=== PATIENT | female | born 1960 | race Caucasian/White ===

== ENCOUNTER 2020-03-09 10:17 | Outpatient (CLI) | payer OTHER, SELFPAY ==
--- NOTE | ~2020-03-09 | MM_ITS ---
EXAMINATION: MM screening maldonado BI w lyn HISTORY: Screening mammogram TECHNIQUE: Craniocaudal and mediolateral oblique 3-D tomosynthesis images were obtained and synthetic 2-D images were generated. CAD analysis was submitted and interpreted. COMPARISON: 01/18/2019, 01/16/2018, 01/14/2017 bilateral digital screening mammogram examinations BREAST PARENCHYMAL COMPOSITION: There are scattered areas of fibroglandular density. FINDINGS: Occasional benign calcifications. There is no evidence of suspicious mass, calcification, o r architectural distortion to suggest malignancy in either breast. There has been no suspicious inter andrae change. IMPRESSION: 1. No mammographic evidence of malignancy. 2. Recommend routine screening mammography in one year. BI-RADS Category 2: Benign finding(s). Reviewed, dictated and finalized at location A.
== END 2020-03-09 10:18 | disposition home or self-care (01) ==
LOC: ANHIMG 10:22
PROVIDERS: PCP Obstetrics & Gynecology; Visit Provider Obstetrics & Gynecology
DX: Z12.31 Encounter for screening mammogram for malignant neoplasm of breast (principal)
CPT/HCPCS: 77063; 77067

== ENCOUNTER 2021-06-27 10:09 | Outpatient (CLI) | payer OTHER, SELFPAY ==
--- NOTE | ~2021-06-27 | MM_ITS ---
EXAMINATION: MM screening maldonado BI w lyn HISTORY: Screening TECHNIQUE: Craniocaudal and mediolateral oblique 3-D tomosynthesis images were obtained and synthetic 2-D images were generated. CAD analysis was submitted and interpreted. COMPARISON: Comparison to multiple prior studies sequentially, with oldest reviewed study dated 09/07. BREAST PARENCHYMAL COMPOSITION: There are scattered areas of fibroglandular density. FINDINGS: There is no evidence of suspicious mass, calcification, or architectural distortion to sugg est malignancy in either breast. There has been no suspicious interval change. IMPRESSION: 1. No mammographic evidence of malignancy. 2. Recommend routine screening mammography in one year. BI-RADS Category 1: Negative Reviewed, dictated and finalized at location A. IFIED APPLIANCE SERVICE TECHNICIAN
== END 2021-06-27 10:10 | disposition home or self-care (01) ==
LOC: ANHIMG 10:19
PROVIDERS: PCP Nurse Practitioner Obstetrics & Gynecology; Visit Provider Nurse Practitioner Obstetrics & Gynecology
DX: Z12.31 Encounter for screening mammogram for malignant neoplasm of breast (principal)
CPT/HCPCS: 77063; 77067

== ENCOUNTER 2022-08-29 09:39 | Outpatient (CLI) | payer OTHER, SELFPAY ==
--- NOTE | ~2022-08-29 | MM_ITS ---
EXAMINATION: MM screening maldonado BI w lyn HISTORY: Screening mammogram TECHNIQUE: Craniocaudal and mediolateral oblique 3-D tomosynthesis images were obtained and synthetic 2-D images were generated. CAD analysis was submitted and interpreted. COMPARISON: 06/27/2021, 03/09/2020, 01/18/2019 bilateral screening mammogram examinations BREAST PARENCHYMAL COMPOSITION: There are scattered areas of fibroglandular density. FINDINGS: Right breast: There is a focal asymmetry in the posterior upper outer right breast. Diagnostic right mammogram is recommended, with ultrasound if required. Left breast: There is no evidence of suspicious mass, calcification, or architectural distortion to s uggest malignancy in either breast. There has been no suspicious interval change. IMPRESSION: 1. Focal posterior upper outer right breast asymmetry 2. Diagnostic right mammogram is recommended, with ultrasound if required BI-RADS Category 0: Incomplete: Needs additional imaging evaluation. Reviewed, dictated and finalized at location A. L ASSOCIATE
== END 2022-08-29 09:40 | disposition home or self-care (01) ==
LOC: ANHIMG 09:42
PROVIDERS: PCP Nurse Practitioner Women's Health; Visit Provider Nurse Practitioner Women's Health
DX: Z12.31 Encounter for screening mammogram for malignant neoplasm of breast (principal); R92.8 Other abnormal and inconclusive findings on diagnostic imaging of breast
CPT/HCPCS: 77063; 77067

== ENCOUNTER 2022-09-13 11:18 | Outpatient (CLI) | payer OTHER, SELFPAY ==
--- NOTE | ~2022-09-13 | MMUS_ITS ---
EXAMINATION: MM diagnostic maldonado RT w lyn, US breast RT limited HISTORY: Focal posterior upper outer right breast mammographic asymmetry on August 29, 2022 screenin g mammogram examination TECHNIQUE: Additional 3-D tomosynthesis images of the right breast were performed, including rolled m edial and rolled lateral craniocaudal views, and synthetic 2-D images were generated. CAD analysis wa s submitted and interpreted. High resolution upper outer quadrant right breast ultrasound was perform ed. COMPARISON: August 29, 2019 bilateral screening mammogram FINDINGS: MAMMOGRAPHIC FINDINGS: Benign calcifications are noted. No suspicious reproducible mass or architectural distortion is evide nt. No malignant calcification, skin thickening or retraction. ULTRASOUND: There are 2 approximately 2 to 3 mm cyst identified at 10:00 2 cm from the nipple and 10:00 4 cm from the nipple. No suspicious mass or shadowing is detected in the upper outer quadrant. IMPRESSION: 1. Benign findings 2. Routine annual mammographic screening is recommended BI-RADS Category 2: Benign finding(s). Reviewed, dictated and finalized at location A. IN MAKER IMPRESSION: 1. Benign findings 2. Routine annual mammographic screening is recommended BI-RADS Category 2: Benign finding(s).
== END 2022-09-13 11:19 | disposition home or self-care (01) ==
PROVIDERS: PCP Nurse Practitioner Women's Health; Visit Provider Nurse Practitioner Women's Health
DX: R92.8 Other abnormal and inconclusive findings on diagnostic imaging of breast (principal)
CPT/HCPCS: 76642; 77061; 77065; G0279

== ENCOUNTER 2023-12-23 10:07 | Outpatient (CLI) | payer MEDICARE, SELFPAY ==
--- NOTE | ~2023-12-23 | MM_ITS ---
EXAMINATION: MM screening maldonado BI w lyn HISTORY: Screening TECHNIQUE: Craniocaudal and mediolateral oblique 3-D tomosynthesis images were obtained and synthetic 2-D images were generated. CAD analysis was submitted and interpreted. COMPARISON: Comparison to multiple prior studies sequentially, with oldest reviewed study dated 01/16. BREAST PARENCHYMAL COMPOSITION: Not dense: There are scattered areas of fibroglandular density. FINDINGS: The right breast is stable without evidence for malignancy. There is developing focal asymm etry in the upper outer quadrant of the left breast anteriorly. IMPRESSION: 1. Developing left breast asymmetry. 2. Additional mammographic views and possible breast ultrasound are recommended. BI-RADS Category 0: Incomplete: Needs additional imaging evaluation. Reviewed, dictated and finalized at location B. IMPRESSION: 1. Developing left breast asymmetry. 2. Additional mammographic views and possible breast ultrasound are recommended . BI-RADS Category 0: Incomplete: Needs additional imaging evaluation.
== END 2023-12-23 10:08 | disposition home or self-care (01) ==
PROVIDERS: PCP Nurse Practitioner Women's Health; Visit Provider Nurse Practitioner Women's Health
DX: Z12.31 Encounter for screening mammogram for malignant neoplasm of breast (principal); N64.89 Other specified disorders of breast; R92.8 Other abnormal and inconclusive findings on diagnostic imaging of breast
CPT/HCPCS: 77063; 77067

== ENCOUNTER 2024-01-12 10:46 | Outpatient (CLI) | payer MEDICARE, SELFPAY ==
--- NOTE | ~2024-01-12 | MMUS_ITS ---
EXAMINATION: MM diagnostic maldonado LT w lyn, US breast LT limited HISTORY: Asymmetric density upper, outer left breast TECHNIQUE: Additional 3-D tomosynthesis spot compression images of the upper, outer left breast were performed and synthetic 2-D images were generated. CAD analysis was submitted and interpreted. High r esolution limited left breast ultrasound was performed. COMPARISON: 12/23/2023, 08/29/2022 FINDINGS: MAMMOGRAPHIC FINDINGS: There are scattered periventricular densities. Spot compression views demonstrate relative partial ef facement of the area of increased density at the upper, outer left subareolar breast. No definite dis crete mass lesion seen. No suspicious microcalcifications. ULTRASOUND: There is a 3 mm hypoechoic rounded masslike structure at the 1:00 position left breast, 2 cm from the nipple, superficially located. No definite sonographic abnormality seen. IMPRESSION: 3 mm probable benign hypoechoic mass at the 1:00 position left breast, 2 cm from the nipple. Six-fri follow-up left mammogram/ultrasound are recommended to reassess. BI-RADS category 3, probably benign findings. Reviewed, dictated and finalized at location . IMPRESSION: 3 mm probable benign hypoechoic mass at the 1:00 position left breast, 2 cm fr om the nipple. Six-month follow-up left mammogram/ultrasound are recommended to reassess. BI-RADS category 3, probably benign findings.
== END 2024-01-12 10:47 | disposition home or self-care (01) ==
LOC: ANHIMG 10:49
PROVIDERS: PCP Nurse Practitioner Women's Health; Visit Provider Nurse Practitioner Women's Health
DX: R92.8 Other abnormal and inconclusive findings on diagnostic imaging of breast (principal)
CPT/HCPCS: 76642; 77061; 77065; G0279

== ENCOUNTER 2025-02-25 14:39 | Emergency (ER) | payer MEDICARE, SELFPAY ==
--- NOTE | 2025-02-25 14:41 | ED_ITS ---
HPI - Female Genitourinary General Chief complaint: Urogenital-Female Stated complaint: urinary irritation Source: patient, RN notes reviewed and old records reviewed Mode of arrival: ambulatory Limitations: no limitations History of Present Illness HPI Narrative: 64-year-old female presents to the [facility] with intermittent for the last 3 weeks symptoms- frequency with urination, sediment, dark urine, intermittent nausea, sometimes having pain inside her bladder. Denies any generalized abdominal pain. No CVA tenderness. Denies fevers. Related Data Allergies Allergy/AdvReac Type Severity Reaction Status Date / Time Penicillins Allergy Mild Rash Verified 02/25/25 15:29 Sulfa (Sulfonamide Allergy Unknown Unknown Verified 02/25/25 15:29 Antibiotics) Review of Systems Review of Systems: All systems reviewed & are unremarkable except as noted in HPI and below Constitutional: Constitutional: Reports no additional constitutional complaints Genitourinary: Genitourinary: Reports as per HPI Musculoskeletal: Musculoskeletal: Reports no additional musculoskeletal complaints Integumentary/Breasts: Skin/Breast: Reports system reviewed and no additional complaints, except as docu PMFSH Comments At the time of my signature, I reviewed and agree with the nursing past medical, surgical, social, and family history. There is no relevant family history pertinent to the patient complaint. Exam Const: General: cooperative, healthy appearing, comfortable, no acute distress, well developed, alert and well nourished Nutritional Appearance: well nourished Orientation/consciousness: patient oriented x3 Limitations: no limitations HENMT: Head: normal to inspection Mouth: Yes Normal oral and palatal mucosa present, Yes lip normal, Yes tongue normal and Yes moist mucous membranes Eyes: General: appearance normal, both eyes and all related structures Alignment and Position: alignment normal Neck: Neck: normal visual inspection, full ROM, no lymphadenopathy and no meningeal signs Chest: Chest palpation & inspection: normal inspection of the chest Resp: Effort & Inspection: normal respiratory effort and able to speak in complete sentences Cardio: Rate: regular rate Skin: General skin exam: normal color and no rashes or lesions noted Neuro: General: patient oriented x3, gait normal, moves all extremities and no meningeal signs Cognition (Neuro): normal cognition Speech: normal speech Gait exam (Neuro): Normal gait present Extrem: General: normal to inspection, full ROM, capillary refill normal and normal gait Psych: Appearance: grossly normal and well kempt Mental Status: mental status grossly normal Speech and movement: Normal speech and movement present and Clear speech present Affect: normal affect Attitude: cooperative Course Course Level of Care: Express Care Visit Vital Signs Vital signs: Vital Signs Temperature 98.2 F 02/25/25 14:51 Pulse Rate 105 H 02/25/25 14:51 Respiratory Rate 20 02/25/25 14:51 Blood Pressure 124/86 02/25/25 14:51 Pulse Oximetry 97 02/25/25 14:51 Oxygen Delivery Room Air 02/25/25 14:51 Temperature 98.2 F 02/25/25 14:51 Pulse Rate 105 H 02/25/25 14:51 Respiratory Rate 20 02/25/25 14:51 Blood Pressure 124/86 02/25/25 14:51 Pulse Oximetry 97 02/25/25 14:51 Oxygen Delivery Room Air 02/25/25 14:51 Reviewed MDM - Female Genitourinary MDM Narrative Medical decision making narrative: Patient sitting in exam patient is nontoxic, vitals stable Patient presents with 3 weeks of intermittent urinary symptoms Urine dip does not show signs of a UTI, no culture is indicated Patient is appropriate for outpatient treatment with close follow-up Discharge instructions reviewed with patient, as well as provided in writing per nursing staff. The instructions also include specific and strict return/GO TO THE ER as well as f/u information. All questions have been answered, and the patient deny any further questions with discharge and discharge plan. Some parts of this dictation were generated by voice recognition software and may contain typographical and/or grammatical inaccuracies. Differential Diagnosis Differential diagnosis: Likely urinary tract infection, cystitis and other (Dysuria) Lab Data Labs: Lab Results 02/25/25 Range/Units 14:54 POC Urine Color Yellow POC Urine Clarity Clear POC Urine pH 6.0 POC Ur Specif [place] 1.005 POC Urine Protein Negative (Negative) POC Ur Glucose (UA) Negative (Negative) POC Urine Ketones Negative (Negative) POC Urine Blood Negative (Negative) POC Urine Nitrite Negative (Negative) POC Urine Bilirubin Negative (Negative) POC Urine Urobilinogen 0.2 POC U Leukocyte Esteras Negative (Negative) Reviewed Critical Care Time Critical Care Time Critical Care Time: No Discharge Plan Discharge Clinical Impression: Abnormality of urination Patient Disposition: Home Condition: Stable Instructions: Antibiotic Form, Dysuria (ED) Additional Instructions: Increased water intake Take Tylenol as needed for pain Today your urine dip did not show signs of a UTI. Follow-up with primary care For new or worsening symptoms go directly to the emergency room Patient Language: Spanish Follow-up/Referrals: Guanaco,Fide Zuluaga APN [[facility] Care Provider[facility] Time of Disposition: 15:12
[2025-02-25 14:51] VITALS: BP 124/86; PULSE 105; RESP 20; TEMP 36.8; O2SAT 97
[2025-02-25 15:00] LABS: EDUAAPPEAR Clear; EDUABILI Negative (Negative); EDUABLOOD Negative (Negative); EDUACOLOR1 Yellow; EDUAGLUCOSE Negative (Negative); EDUAKETONE Negative (Negative); EDUALEUKO Negative (Negative); EDUANITRATE Negative (Negative); EDUAPH 6.0; EDUAPROTEIN Negative (Negative); EDUASPGRAVITY 1.005; EDUAUROBILI 0.2
== END 2025-02-25 15:17 | disposition home or self-care (01) ==
PROVIDERS: Emergency Provider Nurse Practitioner; PCP Nurse Practitioner Family
DX: R39.198 Other difficulties with micturition (principal)
CPT/HCPCS: 81003; 99202; G0463

== ENCOUNTER 2025-04-28 10:43 | Outpatient (CLI) | payer MEDICARE, SELFPAY ==
--- NOTE | ~2025-04-28 | MMUS_ITS ---
EXAMINATION: MM diagnostic maldonado BI w lyn, US breast LT limited INDICATION: 65-year old female; BI-RADS 3, short-term follow-up probably benign left breast mass. Annual right mammogram. COMPARISON: 01/12/2024 through 03/09/2020 TECHNIQUE: Digital breast tomosynthesis bilateral True lateral, CC and MLO views with spot compression views of LEFT breast were obtained with computer-aided detection to assist in interpretation of the study. MAMMOGRAM FINDINGS: There are scattered areas of fibroglandular density. No new suspicious mass, calcification or architectural distortion to suggest malignancy in either breast. LEFT BREAST ULTRASOUND FINDINGS: Targeted evaluation of the area of concern was completed. 0.3 cm circumscribed hypoechoic mass at 1:00 location 2 cm from the nipple in the LEFT breast redemonstrated is Unchanged. IMPRESSION: Probable Benign LEFT breast finding is unchanged. No mammographic evidence of malignancy within the Right breast. RECOMMENDATION: 12 month follow-up diagnostic BILATERAL mammogram and LEFT breast ultrasound 2 completed 24 months follow up. BI-RADS 3, PROBABLY BENIGN Reviewed, dictated and finalized at location B. IMPRESSION: Probable Benign LEFT breast finding is unchanged. No mammographic evidence of malignancy within the Right breast. RECOMMENDATION: 12 month follow-up diagnostic BILATERAL mammogram and LEFT breast ultrasound 2 completed 24 months follow up. BI-RADS 3, PROBABLY BENIGN
== END 2025-04-28 10:44 | disposition home or self-care (01) ==
LOC: ANHFOHIMG 10:47
PROVIDERS: PCP Nurse Practitioner Family; Visit Provider Nurse Practitioner Family
DX: R92.8 Other abnormal and inconclusive findings on diagnostic imaging of breast (principal); N63.21 Unspecified lump in the left breast, upper outer quadrant
CPT/HCPCS: 76642; 77062; 77066; G0279